=== PATIENT | female | born 1980 | race Caucasian/White ===

== ENCOUNTER → 2021-02-25 11:47 | Outpatient (CLI) | payer OTHER, SELFPAY ==
--- NOTE | 2021-02-25 11:52 | DI.CT.S_ITS ---
PROCEDURE: CT SINUS SCREEN WO CON INDICATIONS: Chronic pansinusitis TECHNIQUE: Noncontrast 3.0 mm axial images acquired from the frontal sinuses to the mid-sella, with coronal and sagittal reformats. For radiation dose reduction, the following was used: automated exposure control, adjustment of mA and/or kV according to patient size. COMPARISON: None. FINDINGS: Image quality: Excellent. Maxillary Sinuses: No bony remodeling or destruction. There is mild mucosal thickening seen involving the inferior right maxillary sinus and mild mucosal thickening along the inferior aspect of the left maxillary sinus. Ethmoid Air Cells: No bony remodeling or destruction. Sinuses are clear. Sphenoid Sinuses: No bony remodeling or destruction. Sinuses are clear. Frontal Sinuses: No bony remodeling or destruction. The left frontal sinuses are poorly developed. Sinuses are clear. Ostiomeatal Complexes: Ostiomeatal complexes are patent, yet they are constitutionally narrowed. Emmy cells are seen on the left. Miscellaneous: Visualized intra-orbital contents are normal. There is a right-sided pankaj bullosa. There is [id number] leftward nasal septal deviation. IMPRESSION: Focal maxillary sinus disease, right worse than left. Narrowed ostiomeatal complexes, with Emmy cells seen on the left. Mild leftward nasal septal deviation, with a right-sided pankaj bullosa. Dictated by: Brandon Dodge M.D. on 02/25/2021 at 11:38 Approved by: Brandon Dodge M.D. on 02/25/2021 at 11:40
== END ==
PROVIDERS: Family Provider Nurse Practitioner Family; PCP Nurse Practitioner Family; Referring Provider Otolaryngology; Visit Provider Otolaryngology
DX: J32.4 Chronic pansinusitis (principal); J34.2 Deviated nasal septum
CPT/HCPCS: 70486

== ENCOUNTER → 2021-05-04 11:16 | Outpatient (CLI) | payer OTHER, SELFPAY ==
--- NOTE | 2021-05-04 | DI.MRI.S_ITS ---
PROCEDURE: MR SHOULDER LT WO CON INDICATIONS: PAIN TECHNIQUE: Noncontrast oblique coronal T2 fast spin echo with fat saturation, oblique sagittal T1 spin echo and T2 fast spin echo with fat saturation, axial T1 spin echo and T2 fast spin echo with fat saturation through the shoulder. COMPARISON: None. FINDINGS: Image quality: Excellent. Rotator cuff: Tendinosis and low-grade articular surface partial-thickness tear involving distal supraspinatus at its insertion on the humeral head is seen. Distal infraspinatus and subscapularis tendons are intact. No full-thickness rotator cuff tendon rupture. infraspinatus, and subscapularis tendons appear intact throughout. Sagittal images demonstrate no significant muscle atrophy. Bones and bursae: No bone marrow contusions or fractures. Moderate acromioclavicular joint osteoarthritic changes are seen with downward osteophyte formation depressing the musculotendinous junction of supraspinatus. Small amount of subacromial subdeltoid bursal fluid is seen. Capsule and soft tissues: There is subtle signal abnormality involving superior anterior labrum at 12-1 o'clock position suggestive of superior anterior labral tear. The glenohumeral ligaments are intact. The long head of the biceps tendon demonstrates normal location and morphology. The rotator interval appears normal, without fibrosis. The coracohumeral ligament is normal in thickness. IMPRESSION: 1. Tendinosis and low-grade articular surface partial-thickness tear involving distal supraspinatus at its insertion on humeral head. No full-thickness rotator cuff tendon rupture. 2. Moderate acromioclavicular joint osteoarthritis. Small amount of subacromial subdeltoid bursal fluid. 3. Suggestion of superior anterior labral tear at 12 to 1 o'clock position. Dictated by: Kyle Acosta M.D. on 05/04/2021 at 13:39 Approved by: Kyle Acosta M.D. on 05/04/2021 at 13:45
--- NOTE | 2021-05-04 | DI.MRI.S_ITS ---
PROCEDURE: MR CERVICAL SPINE WO CON INDICATIONS: PAIN TECHNIQUE: Noncontrast sagittal T1 spin echo and T2 fast spin echo, sagittal STIR, foraminal oblique sagittal T2 fast spin echo, and axial gradient echo or T2 fast spin echo through the cervical spine. COMPARISON: [facility], MR, MR LUMBAR SPINE WO CON, 05/04/2021, 11:47. [facility], CR, XR CERVICAL SPINE WITH OBLIQUES, 04/14/2021, 8:54. FINDINGS: Image quality: This examination is limited by involuntary motion artifact. Alignment and Curvature: There is straightening of the normal cervical lordosis. No focal AP alignment abnormality is seen. Bone Marrow: Marrow demonstrates normal overall signal. Spinal Cord: Visualized spinal cord has normal size and signal. No cerebellar tonsillar herniation. Paraspinous Soft Tissues: No paravertebral masses. Prevertebral soft tissues are normal in thickness. C2-C3: No significant abnormality is seen. C3-C4: The disc height and disc signal are relatively well preserved. Mild to moderate disc osteophyte complex is seen. Mild to moderate facet hypertrophy is seen. There is mild right-sided and at least moderate left-sided neural foraminal narrowing seen. Mild to moderate central canal narrowing is seen. There is associated mass effect upon the ventral spinal cord. C4-C5: The disc height and disc signal are relatively well preserved. A mild degree of generalized disc osteophyte complex is seen. Mild facet joint hypertrophy is seen. There is moderate right-sided and [id number] left-sided neural foraminal narrowing seen. Minimal to mild central canal narrowing is seen. C5-C6: The disc height and disc signal are relatively well preserved. A mild degree of generalized disc osteophyte complex is seen. Mild facet joint hypertrophy is seen. Mild bilateral neural foraminal narrowing is seen. No significant central canal narrowing is seen. C6-C7: The disc height and disc signal are relatively well preserved. A mild degree of generalized disc osteophyte complex is seen. Mild facet joint hypertrophy is seen. No significant neural foraminal or central canal narrowing can be seen. C7-T1: No significant abnormality is seen. IMPRESSION: Multiple levels of cervical spine degenerative change are seen, which are overall worst at C3-C4 and C4-C5. Straightening of the normal cervical lordosis is seen, which is commonly observed in patients with muscular spasm. Dictated by: Brandon Dodge M.D. on 05/04/2021 at 11:14 Approved by: Brandon Dodge M.D. on 05/04/2021 at 11:17
--- NOTE | 2021-05-04 | DI.MRI.S_ITS ---
PROCEDURE: MR LUMBAR SPINE WO CON INDICATIONS: PAIN TECHNIQUE: Noncontrast sagittal T1 spin echo and T2 fast echo, sagittal STIR, axial T1 and T2 fast spin echo through the lumbar spine. In cases with scoliosis, additional coronal T2 fast spin echo may be performed. COMPARISON: [facility], MR, MR CERVICAL SPINE WO CON, 05/04/2021, 11:25. [facility] [place], CR, XR LUMBAR SPINE WITH OLBIQUES PLUS FLEXION EXTENSION, 03/31/2021, 9:27. [facility], CT, CT LUMBAR SPINE WITHOUT CONTRAST, 10/26/2020, 10:19 (images only common no outside report.) FINDINGS: Image quality: Excellent. Alignment and Curvature: There is normal bony alignment. Bone Marrow: Marrow is of normal overall signal. No acute vertebral body compression fractures. Spinal Cord: Conus medullaris terminates at the L1 level. Visualized cord demonstrates normal signal and size. Paraspinous Soft Tissues: No paravertebral masses. T12-L1: Normal appearance. L1-L2: Normal appearance. L2-L3: Normal appearance. L3-L4: The disc height and disk signal are well-preserved. Mild generalized disc bulge is seen. Mild facet joint hypertrophy is seen. Minimal to mild bilateral neural foraminal narrowing can be seen. No central canal narrowing is seen. L4-L5: The disc height and disk signal are well-preserved. Mild to moderate disc bulge is seen, which is eccentric to the right, with a right foraminal disc protrusion seen, as on series 5, image 26. Moderate facet joint hypertrophy is seen. Moderate bilateral neural foraminal narrowing can be seen, right worse than left. Minimal central canal narrowing is seen. L5-S1: The disc height and disc signal are relatively well preserved. Mild disc bulge is seen, with a mild central disc extrusion, with inferior migration of the disc material. There is associated annular fissure seen. Mild facet joint hypertrophy is seen. Moderate bilateral neural foraminal narrowing is seen. Mild central canal narrowing is seen. IMPRESSION: Lumbar spine degenerative changes are seen, which are worst inferiorly. Dictated by: Brandon Dodge M.D. on 05/04/2021 at 11:17 Approved by: Brandon Dodge M.D. on 05/04/2021 at 11:21
== END ==
PROVIDERS: Family Provider Nurse Practitioner Family; PCP Nurse Practitioner Family; Referring Provider Physical Medicine & Rehabilitation Pain Medicine; Visit Provider Physical Medicine & Rehabilitation Pain Medicine
DX: M47.26 Other spondylosis with radiculopathy, lumbar region (principal); M47.22 Other spondylosis with radiculopathy, cervical region; S40.012A Contusion of left shoulder, initial encounter; M75.112 Incomplete rotator cuff tear or rupture of left shoulder, not specified as traumatic; M19.012 Primary osteoarthritis, left shoulder
CPT/HCPCS: 72141; 72148; 73221